=== PATIENT | female | born 1995 | race Caucasian/White ===

== ENCOUNTER 2017-10-19 20:10 | Emergency (ER) | payer OTHER ==
[2017-10-19 20:13] VITALS: BP 119/68
[2017-10-19] MEDS ORDERED: PROPARACAINE 0.5% 15 ML OPHT DROP ONE (20:25)
[2017-10-19] MEDS ORDERED: FLUORESCEIN SODIUM 1 MG STRIP OP ONE (20:25)
--- NOTE | 2017-10-19 20:38 | EDPHY ---
Mental Health General Time Seen by Provider: 10/19/17 20:15 Smoking Status: Never smoked - Objective Vital Signs: Initial Vital Signs Temperature (C) 37.2 C 10/19/17 20:11 Heart Rate 91 10/19/17 20:11 Respiratory Rate 18 10/19/17 20:11 Blood Pressure 119/68 10/19/17 20:11 O2 Sat (%) 95 10/19/17 20:11 O2 Delivery Mode Room Air Allergies/Adverse Reactions: No Known Allergies Allergy (Unverified 10/19/17 20:13) Home Medications: Medication Instructions Recorded NK [No Known Home Meds] 10/19/17 Departure - Departure Referrals: NONE *PRIMARY CARE P,. [Primary Care Provider] - As per Instructions
--- NOTE | 2017-10-19 20:47 | EDPHY ---
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 She had loss of vision in her right eye for about 20 min and then she states it gradually came back. She felt normal for about an hour or 2 and then she began seeing dark and light spots in her right eye. Her visual acuity here is normal. She was wearing contacts at the time but is taking them out now. It is not painful. Severity: Severe Modifying factors: Resolving with time REVIEW OF SYSTEMS: Constitutional: denies: chills, fever, recent illness, recent injury EENTM: denies: blurred vision, double vision, nose congestion Respiratory: denies: cough, shortness of breath Cardiac: denies: chest pain, irregular heart rate, lightheadedness, palpitations Gastrointestinal/Abdominal: denies: abdominal pain, diarrhea, nausea, vomiting, blood streaked stools Genitourinary: denies: dysuria, frequency, hematuria, pain Musculoskeletal: denies: joint pain, muscle pain Skin: denies: lesions, rash, jaundice, bruising Neurological: denies: headache, numbness, paresthesia, tingling, dizziness, weakness Hematologic/Lymphatic: denies: blood clots, easy bleeding, easy bruising Immunologic/allergic: denies: HIV/AIDS, transplant 10 systems reviewed and negative except as noted EXAM: GENERAL: Well-appearing, well-nourished and in no acute distress. HEAD: Atraumatic, normocephalic. EYES: Pupils equal round and reactive to light, extraocular movements intact, sclera anicteric, conjunctiva are normal. 20/15 vision in the right, 20/25 in the left. No visible corneal abrasions seen with floor seen staining. Pressure measurements of 17. Examined with ultrasound and no visible detachment seen or hemorrhage. Retina appears normal on direct examination. No visible FX displacement. ENT: TMs normal, nares patent, oropharynx clear without exudates. Moist mucous membranes. NECK: Normal range of motion, supple without lymphadenopathy or JVD. LUNGS: Breath sounds clear to auscultation bilaterally and equal. No wheezes rales or rhonchi. HEART: Regular rate and rhythm without murmurs, rubs or gallops. ABDOMEN: Soft, nontender, normoactive bowel sounds. No guarding, no rebound. No masses appreciated. BACK: No CVA tenderness, no spinal tenderness, step-offs or deformities EXTREMITIES: Normal range of motion, no pitting or edema. No clubbing or cyanosis. NEUROLOGICAL: Cranial nerves II through XII grossly intact. Normal speech, normal gait. 5/5 strength, normal movement in all extremities, normal sensation , normal reflexes PSYCH: Normal mood, normal affect. SKIN: Warm, dry, normal turgor, no visible rashes or lesions. Source: Patient, Family Exam Limitations: No limitations - Personal History LMP (Females 10-55): IUD In Place Current Tetanus/Diphtheria Vaccine: Yes Current Tetanus Diphtheria and Acellular Pertussis (TDAP): Yes - Medical/Surgical History Hx Asthma: No Hx Chronic Respiratory Disease: No Hx Diabetes: No Hx Cardiac Disease: No Hx Renal Disease: No Hx Cirrhosis: No Hx Alcoholism: No Hx HIV/AIDS: No Hx Splenectomy or Spleen Trauma: No Other PMH: WISDOM TEETH - Family History Significant Family History: No pertinent family hx - Social History Smoking Status: Never smoked Alcohol Use: Sober Drug Use: None Constitutional: Initial Vital Signs Temperature (C) 37.2 C 10/19/17 20:11 Heart Rate 91 10/19/17 20:11 Respiratory Rate 18 10/19/17 20:11 Blood Pressure 119/68 10/19/17 20:11 O2 Sat (%) 95 10/19/17 20:11 O2 Delivery Mode Room Air Allergies/Adverse Reactions: No Known Allergies Allergy (Unverified 10/19/17 20:13) Home Medications: Medication Instructions Recorded NK [No Known Home Meds] 10/19/17 Medical Decision Making ED Course/Re-evaluation: I discussed the case with Dr. Aram Johnson from Ophthalmology. He suspects that this is commotio and will gradually resolve. He recommends calling his office if it is not improving. I discussed this with patient and mom understand agree with this plan. Differential Diagnosis: Partial list of the Differential diagnosis considered include but were not limited to; commotio retina , vitreous detachment, and although unlikely based on the history and physical exam, I also considered retinal detachment, lens displacement, hemorrhage, abrasion. I discussed these differential diagnoses and the plan with the patient as well as the usual and expected course. The patient understands that the diagnosis is provisional and that in medicine we are not always correct and that further workup is often warranted. Usual and customary warnings were given. All of the patient's questions were answered. The patient was instructed to return to the emergency department should the symptoms at all worsen or return, otherwise to followup with the physician as we discussed. Departure - Departure Disposition: Home, Routine, Self-Care Clinical Impression: Vision changes Condition: Fair Instructions: Blurred Vision (ED) Additional Instructions: I spoke with Dr. Johnson from Ophthalmology. We suspect that she would have Commotio retina. This should gradually resolve on its own. Please call his office to schedule a follow up appointment Referrals: NONE *PRIMARY CARE P,. [Primary Care Provider] - As per Instructions Aram Johnson MD [Medical Doctor] - As per Instructions
== END 2017-10-19 21:04 | disposition home or self-care (01) ==
DX: H53.8 Other visual disturbances (principal); W21.02XS Struck by soccer ball, sequela; Y93.66 Activity, soccer; Y92.214 College as the place of occurrence of the external cause